=== PATIENT | male | born 1960 | race Caucasian/White ===

== ENCOUNTER → 2017-03-17 | Outpatient (CLI) | payer OTHER ==
--- NOTE | 2017-03-17 17:23 | PCVCIMAG ---
APPROVED REPORT Exam: Stress Echocardiogram Indication: Hyperlipidemia Stress Nurse: Arabella López RN Status: routine Ht: 5 ft 11 in HR: 64 bpm BP: 132/85 mmHg Rhythm: NSR Procedure The patient underwent an Exercise Stress Test using the Wyatt Protocol. Blood pressure, heart rate, and EKG were monitored. An Echocardiogram was performed by screening technician in four stages in quad fashion. At peak stress, four selected images were obtained and placed side by side with resting images for comparison. Stress Test Details Stress Test: Exercise stress testing was performed using a Wyatt protocol. HR Resting HR: 64 bpmMax Heart Rate (APMHR): 164 bpm Max HR Achieved: 153 bpmTarget HR (85% APMHR): 139 bpm % of APMHR: 93 HR response to stress: Normal HR response to stress BP Resting BP: 132/85 mmHg Max BP: 164/76 mmHg ECG Resting ECG: Sinus Rhythm Clinical Reason for Termination: Maximal effort Exercise duration: 14 min sec Exercise capacity: 17.20 METs Pre-Stress Echo The resting Echocardiogram showed normal left ventricular contractility with an estimated Ejection Fraction of about 55-60%. Normal wall motion in all segments on baseline images. Post-Stress Echo The stress Echocardiogram showed normal left ventricular contractility with an estimated Ejection Fraction of about 60-65%. Normal augmentation of wall motion in all segments on post stress images. Conclusion Clinical Response: Non-ischemic Exercise Capacity: Superior Stress ECG Response: Non-ischemic Stress Echo Images: Non-ischemic Other Information Study Quality: Good
== END | disposition home or self-care (01) ==
LOC: PCVCIMAG 16:19
PROVIDERS: ATTEND Internal Medicine Cardiovascular Disease
DX: E78.5 Hyperlipidemia, unspecified (principal); R61 Generalized hyperhidrosis
CPT/HCPCS: 93325; 93351